=== PATIENT | female | born 1990 | race Caucasian/White ===

== ENCOUNTER 2018-03-24 18:15 | Emergency (ER) | payer BC ==
[2018-03-24] MEDS ORDERED: Ketorolac 60 MG/2 ML SDV IM ONE (18:23)
[2018-03-24] MEDS ORDERED: Azithromycin 250 MG Tab PO ONE (18:23)
[2018-03-24 18:25] VITALS: BP 136/73
--- NOTE | 2018-03-24 18:27 | EDM.PDOC ---
ED HPI GENERAL MEDICAL PROBLEM - General Chief Complaint: ENT Problem Stated Complaint: POSSIBLE EAR INFECTION/TONSIL Time Seen by Provider: 03/24/18 18:20 Source of Information: Reports: Patient History Limitations: Reports: No Limitations - History of Present Illness INITIAL COMMENTS - FREE TEXT/NARRATIVE: History of present illness: []Patient complains of sore throat and right ear pain that is sharp and stabbing. She's had strep in the past and feels the same. Patient complains of chills but no fevers denies any coughing, nausea, vomiting or diarrhea. Review of systems: As per history of present illness and below otherwise all systems reviewed and negative. Past medical history: As per history of present illness and as reviewed below otherwise noncontributory. Surgical history: As per history of present illness and as reviewed below otherwise noncontributory. Social history: No reported history of drug or alcohol abuse. Family history: As per history of present illness and as reviewed below otherwise noncontributory. Physical exam: General: Well developed, well nourished in NAD HEENT: Atraumatic, normocephalic, pupils reactive, negative for conjunctival pallor or scleral icterus, mucous membranes moist, throat erythematous with mild edema, no stridor, neck supple, nontender, trachea midline. Palpable Anterior cervical adenopathy bilaterally, TMs normal Lungs: Clear to auscultation, breath sounds equal bilaterally, chest nontender. No rhonchi Heart: S1S2, regular, negative for clicks, rubs, or JVD. Abdomen: Soft, nondistended, nontender. Negative for masses or hepatosplenomegaly. Negative for costovertebral tenderness. Pelvis: Stable nontender. Genitourinary: Deferred. Rectal: Deferred. Extremities: Atraumatic, negative for cords or calf pain. Neurovascular unremarkable. Neuro: Awake, alert, oriented. Cranial nerves II through XII unremarkable. Cerebellum unremarkable. Motor and sensory unremarkable throughout. Exam nonfocal. Diagnostics: [] Therapeutics: []Zithromax, Toradol Impression: []Acute pharyngitis Plan: []Zithromax, one tablet a day for 4 more days. Increase fluids, ibuprofen for pain turn his symptoms worsen or change. Definitive disposition and diagnosis as appropriate pending reevaluation and review of above. Right Ear Pain Score (Numeric/FACES): 7 - Related Data Allergies Allergy/AdvReac Type Severity Reaction Status Date / Time No Known Allergies Allergy Verified 03/24/18 18:25 Home Meds: Home Meds . [No Known Home Meds] 03/24/18 [History] Past Medical History Cardiovascular History: Reports: None Respiratory History: Reports: None Gastrointestinal History: Reports: None Genitourinary History: Reports: None [employer]ING History: Reports: None Musculoskeletal History: Reports: None Neurological History: Reports: None Psychiatric History: Reports: None Endocrine/Metabolic History: Reports: None Hematologic History: Reports: None Immunologic History: Reports: None Oncologic (Cancer) History: Reports: None Dermatologic History: Reports: None - Infectious Disease History Infectious Disease History: Reports: None - Past Surgical History HEENT Surgical History: Reports: Other (See Below) Female Surgical History: Reports: Section ED ROS ENT - Review of Systems Review Of Systems: ROS reveals no pertinent complaints other than HPI. ED EXAM, ENT - Physical Exam Exam: See Below (See history of present illness) Course - Vital Signs Last Recorded V/S: Last Vital Signs Temp 98.0 F 03/24/18 18:22 Pulse 99 03/24/18 18:22 Resp 18 03/24/18 18:22 BP 136/73 03/24/18 18:22 Pulse Ox 100 03/24/18 18:22 - Orders/Labs/Meds Meds: Medications Discontinued Medications Generic Name Dose Route Start Last Admin Trade Name Lonnieq PRN Reason Stop Dose Admin Azithromycin 500 mg 03/24/18 18:23 03/24/18 18:28 Zithromax PO 03/24/18 18:24 500 mg ONETIME ONE Administration Ketorolac Tromethamine 60 mg 03/24/18 18:23 03/24/18 18:28 Toradol IM 03/24/18 18:24 60 mg ONETIME ONE Administration Departure - Departure Time of Disposition: 18:26 Disposition: Home, Self-Care 01 Condition: Good Clinical Impression: Acute pharyngitis Qualifiers: Pharyngitis/tonsillitis etiology: unspecified etiology Qualified Code(s): J02.9 - Acute pharyngitis, unspecified - Discharge Information Referrals: PCP,None [Primary Care Provider] - Forms: ED Department Discharge Additional Instructions: The following information is given to patients seen in the emergency department who are being discharged to home. This information is to outline your options for follow-up care. We provide all patients seen in our emergency department with a follow-up referral. The need for follow-up, as well as the timing and circumstances, are variable depending upon the specifics of your emergency department visit. If you don't have a primary care physician on staff, we will provide you with a referral. We always advise you to contact your personal physician following an emergency department visit to inform them of the circumstance of the visit and for follow-up with them and/or the need for any referrals to a consulting specialist. The emergency department will also refer you to a specialist when appropriate. This referral assures that you have the opportunity for follow-up care with a specialist. All of these measure are taken in an effort to provide you with optimal care, which includes your follow-up. Under all circumstances we always encourage you to contact your private physician who remains a resource for coordinating your care. When calling for follow-up care, please make the office aware that this follow-up is from your recent emergency room visit. If for any reason you are refused follow-up, please contact the [facility] Emergency Department at and asked to speak to the emergency department charge nurse. Increase fluids, ibuprofen and Tylenol for pain, Zithromax 1 tablet daily for the next 4 days. Return if symptoms worsen or change. [facility] [address] [place] [id number]
== END 2018-03-24 19:03 | disposition home or self-care (01) ==
LOC: MW.ED 18:15
DX: J02.9 Acute pharyngitis, unspecified (principal)
CPT/HCPCS: 96372; 99282; A9270; J1885

== ENCOUNTER 2025-07-16 19:29 | Emergency (ER) | payer MEDICAID, OTHER ==
[2025-07-16 19:52] VITALS: BP 123/75; PULSE 92
[2025-07-16] MEDS: Dexamethasone Sod Phos Preservative Free 10 MG/ML Vial ONE (21:18)
== END 2025-07-16 21:28 | disposition home or self-care (01) ==
LOC: MW.ED 19:29
DX: J02.9 Acute pharyngitis, unspecified (principal); Z75.3 Unavailability and inaccessibility of health-care facilities
CPT/HCPCS: 99283; J1100